=== PATIENT | female | born 1970 | race Caucasian/White ===

== ENCOUNTER 2017-02-28 07:46 | Outpatient (CLI) | payer OTHER | END 2017-02-28 07:47 | disposition home or self-care (01) | DX: Z13.220 Encounter for screening for lipoid disorders (principal); R63.5 Abnormal weight gain; Z13.1 Encounter for screening for diabetes mellitus; R03.0 Elevated blood-pressure reading, without diagnosis of hypertension ==

== ENCOUNTER 2018-03-27 17:10 | Emergency (ER) | payer OTHER ==
[2018-03-27 18:16] LABS: BILIRUBIN,URINE NEGATIVE (NEGATIVE); GLUCOSE, URINE (UA) NEGATIVE (NEGATIVE); KETONES,URINE (UA) NEGATIVE (NEGATIVE); LEUKOCYTE ESTERASE, URINE NEGATIVE (NEGATIVE); NITRITE,URINE NEGATIVE (NEGATIVE); OCCULT BLOOD,URINE MODERATE (NEGATIVE); PH,URINE 5.5 PH (5.0-7.5); PROTEIN,URINE NEGATIVE (NEGATIVE); UROBILINOGEN,URINE 0.2 (NORMAL) E.U./dL (NORMAL)
--- NOTE | 2018-03-27 18:17 | ED Physician Documentation ---
PD HPI ABD PAIN - Stated complaint Stated Complaint: ABD PX - Chief complaint Chief Complaint: Abd Pain - History obtained from History obtained from: Patient - History of Present Illness Timing - onset: How many days ago (3-4) Timing - duration: Days (3) Timing - details: Gradual onset, Still present, Still present in ED Quality: Cramping, Aching, Pain Location: LLQ Radiation: Lower back. No: Left flank Improved by: No: Eating Worsened by: Moving, Position (lying on side), Palpation. No: Eating Associated symptoms: Nausea. No: Fever, Vomiting, Diarrhea, Constipation, Dysuria, Hematuria, Loss of appetite, Vaginal dc Similar symptoms before: Has not had sx before Recently seen: Not recently seen Review of Systems Constitutional: reports: Myalgias. denies: Fever, Chills Nose: denies: Rhinorrhea / runny nose, Congestion Throat: denies: Sore throat Cardiac: denies: Chest pain / pressure, Palpitations Respiratory: denies: Dyspnea, Cough GI: reports: Abdominal Pain, Nausea. denies: Vomiting, Constipation, Diarrhea, Bloody / black stool : denies: Dysuria, Frequency, Discharge Skin: denies: Rash, Lesions PD PAST MEDICAL HISTORY - Past Medical History Cardiovascular: None Respiratory: None Neuro: None Endocrine/Autoimmune: None KILN PUSHER: None - Past Surgical History Past Surgical History: Yes /KILN PUSHER: section - Present Medications Home Medications: Ambulatory Orders Medication Instructions Recorded Confirmed Ibuprofen [Motrin Ib] 400 mg PRN 09/25/15 09/25/15 Clindamycin HCl [Cleocin HCl] 300 mg PO BID #14 capsule 03/27/18 Doxycycline Monohydrate 100 mg PO BID #14 tablet 03/27/18 HYDROcod/ACETAM 5/325 [Collins 5/325] 1 tab PO Q6H PRN #15 tablet 03/27/18 Naproxen 375 mg PO BID #20 tablet 03/27/18 - Allergies Allergies/Adverse Reactions: Allergies Allergy/AdvReac Type Severity Reaction Status Date / Time No Known Drug Allergies Allergy Verified 03/27/18 17:19 - Social History Does the pt smoke?: No Smoking Status: Never smoker Does the pt drink ETOH?: No Does the pt have substance abuse?: No - Immunizations Immunizations are current?: Yes - POLST Patient has POLST: No PD ED PE NORMAL - Vitals Vital signs reviewed: Yes - General General: Alert and oriented X 3, Well developed/nourished, Other (appears in pain LLQ. ) - HEENT HEENT: Ears normal, Pharynx benign - Neck Neck: Supple, no meningeal sign, No adenopathy - Cardiac Cardiac: RRR, No murmur - Respiratory Respiratory: Clear bilaterally - Abdomen Abdomen: Normal bowel sounds, Soft, Non distended, No organomegaly, Other ( tender LLQ with some local guarding. No percussion nor rebound tenderness. ) - Female Female : Other (some vaginal discharge. Cervix does not appear irritated. ) - Back Back: No CVA TTP - Derm Derm: Normal color, Warm and dry - Extremities Extremities: No deformity, No tenderness to palpate, Normal ROM s pain, No edema , No calf tenderness / cord - Neuro Neuro: Alert and oriented X 3, No motor deficit, Normal speech Results - Vitals Vitals: Vital Signs - 24 hr 03/27/18 03/27/18 03/27/18 17:17 18:28 21:02 Temperature 36.4 C L Heart Rate 95 81 Respiratory 18 16 17 Rate Blood Pressure 147/92 H 150/95 H O2 Saturation 100 100 03/27/18 03/27/18 21:41 21:48 Temperature Heart Rate 70 Respiratory 16 17 Rate Blood Pressure 134/83 H O2 Saturation 100 Oxygen O2 Source Room air - Labs Labs: Laboratory Tests 03/27/18 03/27/18 03/27/18 18:04 19:00 19:00 WBC 12.5 H RBC 4.35 Hgb 11.1 L Hct 34.6 L MCV 79.6 L MCH 25.4 L MCHC 32.0 RDW 16.0 H Plt Count 277 MPV 8.4 Neut # 9.3 H Lymph # 2.3 [place] # 0.6 Eos # 0.2 Baso # 0.0 Absolute Nucleated RBC 0.01 Nucleated RBC % 0.1 Sodium 136 Potassium 3.5 Chloride 101 Carbon Dioxide 27 Anion Gap 8.0 BUN 10 Creatinine 0.7 Estimated GFR (MDRD) 90 Glucose 91 Calcium 8.2 L Total Bilirubin 1.2 H AST 20 ALT 22 Alkaline Phosphatase 81 Total Protein 7.4 Albumin 3.7 Globulin 3.7 Albumin/Globulin Ratio 1.0 Lipase 18 L Urine Color YELLOW Urine Clarity CLEAR Urine pH 5.5 Ur Specific [place] >=1.030 H Urine Protein NEGATIVE Urine Glucose (UA) NEGATIVE Urine Ketones NEGATIVE Urine Occult Blood MODERATE H Urine Nitrite NEGATIVE Urine Bilirubin NEGATIVE Urine Urobilinogen 0.2 (NORMAL) Ur Leukocyte Esterase NEGATIVE Urine RBC 6-10 H Urine WBC 0-3 Ur Squamous Epith Cells MANY Squamous H Urine Bacteria Few Ur Microscopic Review INDICATED Urine Culture Comments NOT INDICATED Urine HCG, Qual NEGATIVE - Rads (name of study) abd CT Radiology: Prelim report reviewed, Discussed with rads (tuboovarian cystic mass with inflammation concerning for torsion or abscess. Suggest U/S) Pelvic U/S Radiology: Prelim report reviewed (ovary normal with flow. Tube with fluid structure complex c/w likely infection. Not large enough for drainage. ) PD MEDICAL DECISION MAKING - ED course Complexity details: reviewed results (abd CT showed cystic structure with inflammation left tuboovarian area, suggested U/S. US showing normal ovary with flow. Apparent abscess in tube. Not large enough for draianble per Rad report. ) , considered differential, d/w patient, d/w gis consultant (Dr. Hewitt, vendor relationship manager KILN PUSHER, who suggests Doxy and Clinda. ) Departure - Departure Disposition: 01 Home, Self Care Clinical Impression: Tubo-ovarian abscess, Abdominal pain, left lower quadrant Condition: Stable Record reviewed to determine appropriate education?: Yes Prescriptions: Clindamycin HCl [Cleocin HCl] 300 mg PO BID #14 capsule Doxycycline Monohydrate 100 mg PO BID #14 tablet HYDROcod/ACETAM 5/325 [Collins 5/325] 1 tab PO Q6H PRN #15 tablet PRN Reason: Pain Naproxen 375 mg PO BID #20 tablet Comments: He have what appears to be an infection of the left fallopian tube. It is not large enough to need surgical draining. We will see if it gets better with antibiotics. Use naproxen twice daily for inflammation. Add Tylenol or hydrocodone if needed for pain. Take doxycycline and clindamycin as directed. Drink lots of fluids. Follow-up with women's health, Dr. Mishra, in about a week , call for an appointment. Return sooner if worsening.
[2018-03-27 18:21] LABS: CLARITY,URINE CLEAR (CLEAR); HCG UR QUAL NEGATIVE
[2018-03-27 18:34] LABS: BACTERIA,URINE Few /HPF (None Seen); SQUAMOUS EPITHELIAL CELL,UR MANY Squamous (<= Few)
[2018-03-27] MEDS ORDERED: KETOROLAC 60 MG/2 ML VIAL IVP STA (18:34)
[2018-03-27] MEDS ORDERED: MORPHINE 10 MG/ML VIAL IVP STA ×2 (18:34→21:15)
[2018-03-27] MEDS ORDERED: ONDANSETRON 4 MG/2 ML VIAL IVP STA ×2 (18:34→21:41)
[2018-03-27] MEDS ORDERED: IOPAMIDOL-300 100 ML VIAL ONE (18:49)
[2018-03-27 19:19] LABS: BASOPHILS % (AUTO) 0.4 %; EOSINOPHILS # (AUTO) 0.2 10^3/uL (0.0-0.7); EOSINOPHILS % (AUTO) 1.6 %; HGB - HEMOGLOBIN 11.1 g/dL (12.0-16.0); LYMPHOCYTES # (AUTO) 2.3 10^3/uL (1.5-3.5); LYMPHOCYTES % (AUTO) 18.5 %; MEAN CORPUSCULAR HEMOGLOBIN 25.4 pg (27.0-31.0); MEAN CORPUSCULAR VOLUME 79.6 fL (81.0-99.0); MEAN PLATELET VOLUME 8.4 fL (7.9-10.8); MONOCYTES # (AUTO) 0.6 10^3/uL (0.0-1.0); MONOCYTES % (AUTO) 5.1 %; NEUTROPHILS # (AUTO) 9.3 10^3/uL (1.5-6.6); NEUTROPHILS % (AUTO) 74.4 %; PLT - PLATELET COUNT 277 10^3/uL (130-450); RED BLOOD COUNT 4.35 10^6/uL (4.20-5.40); WHITE BLOOD COUNT 12.5 x10^3/uL (4.8-10.8)
[2018-03-27] MEDS ORDERED: IOPAMIDOL-300 100 ML VIAL IVP ONE (19:31)
[2018-03-27 19:34] LABS: ALBUMIN 3.7 g/dL (3.2-5.5); BILIRUBIN,TOTAL 1.2 mg/dL (0.2-1.0); CALCIUM 8.2 mg/dL (8.5-10.3); CREATININE 0.7 mg/dL (0.4-1.0); TOTAL PROTEIN 7.4 g/dL (6.7-8.2)
--- NOTE | 2018-03-27 19:52 | CT Preliminary Report ---
Exam: CT ABDOMEN/PELVIS W/ IMPRESSION: 1. Abnormally enlarged left ovary with mild adjacent inflammatory stranding. Finding is nonspecific a nd could be due to developing tubo-ovarian abscess or ovarian torsion. Recommend pelvic ultrasound wi th Doppler for further evaluation. No drainable fluid collection demonstrated at this time however. 2. Few scattered colonic diverticula without evidence of acute diverticulitis. 3. Probable left renal upper pole cyst versus dilated calyx. RADIA The above findings were discussed with Faustino Patel by Dr. Faustino Ochoa at 19:46 hrs on 03/27/18. SITE ID: [id number]
--- NOTE | 2018-03-27 20:02 | CT Report ---
EXAM: CT ABDOMEN AND PELVIS EXAM DATE: 03/27/2018 07:38 PM. CLINICAL HISTORY: Left lower abdominal pain for 3 days. COMPARISONS: None. TECHNIQUE: Routine helical CT imaging was performed through the abdomen and pelvis. IV contrast: 100 mL Isovue-300. Enteric contrast: No. Reconstructions: Coronal and sagittal. In accordance with CT protocol optimization, one or more of the following dose reduction techniques w ere utilized for this exam: automated exposure control, adjustment of mA and/or KV based on patient s ize, or use of iterative reconstructive technique. FINDINGS: Lung Bases: Unremarkable. Liver: Normal. No masses. Gallbladder/Bile Ducts: Unremarkable. Spleen: Normal. Pancreas: Normal. Adrenal Glands: Normal. Kidneys: No hydronephrosis or any definite calculi. Small hypodense structure again noted in the left kidney extending into the parapelvic region from the upper pole, either a parapelvic/renal cortical cyst versus prominent calyx. Peritoneal Cavity/Bowel: No free fluid. No extraluminal gas. No evidence of bowel obstruction or inflammation. Stool burden is within normal limits. There are a f ew scattered colonic diverticula without evidence of acute diverticulitis. The appendix is visualized and normal. No abnormally enlarged lymph nodes. Pelvic Organs: -The urinary bladder is unremarkable. -The uterus is anteflexed and within normal limits. -There is a cyst versus prominent follicle in the region of the right adnexa measuring 29 mm (). -The left ovary is enlarged measuring 26 x 31 x 39 mm with adjacent mild fat stranding ( and 03/27 ). The ovary is located in the left lower quadrant. There is a small rim-enhancing cystic-appearing f ocus which could represent a tiny abscess or follicle (). Vasculature: No aneurysms or other significant abnormality. Bones: No significant abnormality. Other: None. IMPRESSION: 1. Abnormally enlarged left ovary with mild adjacent inflammatory stranding. Finding is nonspecific a nd could be due to developing tubo-ovarian abscess or ovarian torsion. Recommend pelvic ultrasound wi th Doppler for further evaluation. No drainable fluid collection demonstrated at this time, however. 2. Few scattered colonic diverticula without evidence of acute diverticulitis. 3. Probable left renal upper pole cyst versus dilated calyx. RADIA The above findings were discussed with Faustino Patel by Dr. Faustino Ochoa at 19:46 hrs on 03/27/18. Referring Provider Line: [phone] SITE ID: [id number]
--- NOTE | 2018-03-27 21:29 | Ultrasound Preliminary Report ---
Exam: US PELVIC W/TRANSVAG+DOPPLER LTD IMPRESSION: 1. Simple 3.5 cm right ovarian cyst. Otherwise normal uterus and ovaries. 2. Questionable dilated left fallopian tube containing debris or blood products. Clinical correlation recommended to exclude pyosalpinx. If clinically indicated, MR may be helpful for further characteri zation. RADIA SITE ID: [id number]
--- NOTE | 2018-03-27 21:29 | Ultrasound Report ---
EXAM: PELVIC ULTRASOUND EXAM DATE: 03/27/2018 09:05 PM. CLINICAL HISTORY: Lower abd pain for few days. COMPARISON: None. TECHNIQUE: Realtime transabdominal pelvic scan performed to identify the uterus and adnexa and as an overview of other pelvic structures, followed by transvaginal scan to provide greater detail of the u terus and adnexa, with static image documentation. FINDINGS: Uterus: 10.5 x 4.2 x 5.8 cm, volume 134.1 cc. Anteverted position. Normal overall size and echotextur e. Masses: None. Endometrium: 10 mm. Normal. Cervix: Unremarkable. Right Ovary: 4.7 x 3.2 x 3.4 cm, volume 27.1 cc. There is a simple 3.5 x 2.7 x 3.1 cm cyst within the right ovary. There is normal ovarian blood flow. Left Ovary: 3.2 x 2.4 x 2.9 cm, volume 11.7 cc. Normal echotexture and blood flow. There is a tubular structure measuring 1 cm in diameter between the ovary and uterus containing internal echoes. Free Fluid: None. Other: None. IMPRESSION: 1. Simple 3.5 cm right ovarian cyst. Otherwise normal uterus and ovaries. 2. Questionable dilated left fallopian tube containing debris or blood products. Clinical correlation recommended to exclude pyosalpinx. If clinically indicated, MR may be helpful for further characteri zation. RADIA Referring Provider Line: [phone] SITE ID: [id number]
[2018-03-27 21:50] VITALS: BP 134/83
[2018-03-27] MEDS ORDERED: ONDANSETRON ODT 4 MG Prepack 2 TL PRN (22:08)
[2018-03-27] MEDS ORDERED: CLINDAMYCIN 150 MG CAPSULE PO STA (22:16)
[2018-03-27] MEDS ORDERED: HYDROcod/ACET 5/325 Prepack 4 PO STA (22:17)
[2018-03-27] MEDS ORDERED: cefTRIAXone 1 GM in SODIUM CHLORIDE 0.9% MINIBAG 100 ML IV STA (22:26)
[2018-03-27] MEDS: DOXYCYCLINE 100 MG TABLET PO STA ×2 (22:41→23:22)
== END 2018-03-27 23:24 | disposition home or self-care (01) ==
LOC: ED 17:10
DX: N70.93 Salpingitis and oophoritis, unspecified (principal); R10.32 Left lower quadrant pain
CPT/HCPCS: 36415; 74177; 76830; 76856; 80053; 81001; 81025; 83690; 85025; 87210; 87491; 87591; 93976; 96365; 96375; 96376; 99284; Q9967; 81003; 87086

== ENCOUNTER 2018-05-14 18:11 | Outpatient (CLI) | payer OTHER ==
--- NOTE | 2018-05-15 11:57 | Ultrasound Report ---
Procedure Date: 05/14/2018 Accession Number: [id number] / [id number] Procedure: US - Pelvic w/Transvaginal CPT Code: FULL RESULT: EXAM: Pelvic w/Transvaginal DATE: 05/14/2018 7:03 PM CLINICAL HISTORY: FEMALE PELVIC INFLAMMATORY DISEASE COMPARISON: Pelvic ultrasound 03/27/2018. TECHNIQUE: Realtime transabdominal imaging performed to identify the uterus and adnexa and as an overview of other pelvic structures, followed by transvaginal imaging for better assessment of the endometrium and/or adnexa, with static image documentation. FINDINGS: Uterus: 10.3 x 4.3 x 5.8 cm, volume 134 cc. Anteverted position. Normal overall size and echotexture. Masses: None. Endometrium: 12 mm. Normal. Cervix: Minimal endocervical fluid, otherwise unremarkable. Right Ovary/Adnexa: 2.6 x 2.8 x 2.1 cm, volume 8 cc. Normal echotexture. Blood flow is present. No adnexal mass is seen. Left Ovary/Adnexa: 2.2 x 2.3 x 1.5 cm, volume for cc. Normal echotexture. Blood flow is present. Left adnexal cyst measuring up to 2.3 cm without vascularity, possibly a dominant follicle. Free Fluid: None. Other: None. IMPRESSION: Left adnexal cyst as described, otherwise normal pelvic ultrasound. RADIA
== END 2018-05-14 18:12 | disposition home or self-care (01) ==
LOC: DI 18:11
PROVIDERS: ATTEND Obstetrics & Gynecology
DX: N94.89 Other specified conditions associated with female genital organs and menstrual cycle (principal); N73.9 Female pelvic inflammatory disease, unspecified
CPT/HCPCS: 76830; 76856

== ENCOUNTER 2019-09-18 14:20 | Outpatient (CLI) | payer BC, OTHER ==
[2019-09-18 15:13] LABS: HCG UR QUAL NEGATIVE
== END 2019-09-18 23:59 | disposition home or self-care (01) ==
LOC: LAB.R 14:20
PROVIDERS: ATTEND Obstetrics & Gynecology
DX: N91.2 Amenorrhea, unspecified (principal)
CPT/HCPCS: 81025

== ENCOUNTER 2019-09-27 07:45 | Outpatient (CLI) | payer BC ==
[2019-09-27 08:30] LABS: HGB - HEMOGLOBIN 12.2 g/dL (12.0-16.0); MEAN CORPUSCULAR HEMOGLOBIN 26.1 pg (27.0-31.0); MEAN CORPUSCULAR HGB CONC 31.2 g/dL (32.0-36.0); MEAN CORPUSCULAR VOLUME 83.5 fL (81.0-99.0); RED BLOOD COUNT 4.68 10^6/uL (4.20-5.40); RED CELL DISTRIBUTION WIDTH 15.5 % (12.0-15.0); WHITE BLOOD COUNT 6.6 x10^3/uL (4.8-10.8)
[2019-09-27 08:45] LABS: ALBUMIN 3.9 g/dL (3.2-5.5); ALBUMIN/GLOBULIN RATIO 1.1 (1.0-2.2); ALKALINE PHOSPHATASE 86 IU/L (42-121); ALT ALANINE AMINOTRANSFERASE 27 IU/L (10-60); AST ASPARTATE AMINOTRANSFERASE 23 IU/L (10-42); BILIRUBIN,TOTAL 0.8 mg/dL (0.2-1.0); BUN - BLOOD UREA NITROGEN 12 mg/dL (6-20); CARBON DIOXIDE - CO2 29 mmol/L (21-32); CHLORIDE 101 mmol/L (101-111); CHOL/HDL RATIO 3.2 (<4.4); CHOLESTEROL 174 mg/dL; CREATININE 0.8 mg/dL (0.4-1.0); GFR - MDRD 76 (>89); GLUCOSE 106 mg/dL (70-100); HDL CHOLESTEROL 55 mg/dL; LDL CHOLESTEROL,CALCULATED 103 mg/dL; LDL/HDL RATIO 1.9 (<4.4); SODIUM 138 mmol/L (135-145); TOTAL PROTEIN 7.3 g/dL (6.7-8.2); VLDL CHOLESTEROL 16 mg/dL
[2019-09-27 08:49] LABS: HB2 TOTAL 12.5 g/dL; HEMOGLOBIN A1C 0.48 g/dL; HEMOGLOBIN A1C % 5.7 % (4.6-6.2)
[2019-09-27 09:07] LABS: T4 (THYROXINE) 10.36 ug/dL (6.09-12.23)
[2019-09-27 09:10] LABS: THYROID STIMULATING HORMONE 2.9 uIU/mL (0.34-5.60)
[2019-09-27 09:39] LABS: FOLLICLE STIMULATING HORMONE 12.42 mIU/mL
== END 2019-09-27 07:46 | disposition home or self-care (01) ==
LOC: LAB 07:45
PROVIDERS: ATTEND Obstetrics & Gynecology
DX: Z13.1 Encounter for screening for diabetes mellitus (principal); Z13.220 Encounter for screening for lipoid disorders; N92.6 Irregular menstruation, unspecified; E03.9 Hypothyroidism, unspecified; Z13.0 Encounter for screening for diseases of the blood and blood-forming organs and certain disorders involving the immune mechanism
CPT/HCPCS: 36415; 80053; 80061; 82670; 83001; 83036; 83721; 84144; 84436; 84443; 84702; 85027

== ENCOUNTER 2019-10-28 12:32 | Outpatient (CLI) | payer BC ==
--- NOTE | 2019-10-28 14:17 | Mammography Report ---
Reason: LEFT AXILLA MASS Procedure Date: 10/28/2019 Accession Number: [id number] / [id number] Procedure: TANNER - Diagnostic Dig Bilat CPT Code: Final Report FULL RESULT: EXAM: Diagnostic Dig Bilat DATE: 10/28/2019 1:32 PM CLINICAL HISTORY: Palpable left axillary mass. TECHNIQUE: (B) - Bilateral CC and MLO views were obtained. Left ML images are obtained. Focused left breast and left axilla ultrasound is performed. COMPARISON: 04/18/2017. PARENCHYMAL PATTERN: (D) - The breast(s) demonstrate(s) heterogeneously dense fibroglandular parenchyma. FINDINGS: The palpable left axillary mass as marked demonstrates fat density, asymmetric contour abnormality is seen at the expected location, possibly a lipoma. Focused left axilla ultrasound is performed with no suspicious mass or collection seen. Sonographically, no lesion is identified. A stable asymmetry seen medially along the breast, on the left CC projection is unchanged compared to 2017 and focused left breast ultrasound demonstrates no abnormalities in the area with normal breast parenchyma seen, typically benign. There are no suspicious masses, calcifications, or areas of distortion. IMPRESSION: Benign findings. BI-RADS category 2. RECOMMENDATION: (ANNUAL) - Recommend routine annual screening mammography. BI-RADS CATEGORY: (2) - Benign Findings. STANDARD QUALIFYING STATEMENTS: 1. This examination was not reviewed with the aid of Computer-Aided Detection (CAD). 2. A negative or benign imaging report should not preclude biopsy if clinically suspicious findings are present. 3. Dense breasts may obscure an underlying neoplasm. 4. This examination was reviewed with the aid of 3D breast imaging (tomosynthesis).
== END 2019-10-28 12:33 | disposition home or self-care (01) ==
LOC: DI 12:32
PROVIDERS: ATTEND Obstetrics & Gynecology
DX: N63.32 Unspecified lump in axillary tail of the left breast (principal)
CPT/HCPCS: 76642; 77066

== ENCOUNTER 2019-11-15 08:00 | Outpatient (CLI) | payer BC | END 2019-11-15 23:59 | LOC: LAB.R 08:00 | PROVIDERS: ATTEND Nurse Practitioner | DX: J06.9 Acute upper respiratory infection, unspecified (principal) | CPT/HCPCS: 87275; 87276 ==

== ENCOUNTER 2019-11-19 19:00 | Outpatient (CLI) | payer BC ==
--- NOTE | 2019-11-22 08:25 | Ultrasound Report ---
Reason: IRREGULAR PERIODS Procedure Date: 11/19/2019 Accession Number: [id number] / [id number] Procedure: US - Pelvic w/Transvaginal CPT Code: Final Report FULL RESULT: EXAM: PELVIC ULTRASOUND EXAM DATE: 11/19/2019 07:30 PM. CLINICAL HISTORY: IRREGULAR PERIODS. COMPARISON: PELVIC W/TRANSVAGINAL 05/14/2018 6:23 PM ABDOMEN/PELVIS W/ 03/27/2018 7:28 PM. TECHNIQUE: Realtime transabdominal pelvic scan performed to identify the uterus and adnexa and as an overview of other pelvic structures, followed by transvaginal scan to provide greater detail of the uterus and adnexa, with static image documentation. FINDINGS: Uterus: 7.5 x 3.2 x 4.6 cm, volume 57.7 cc. Anteverted position. Normal overall size and echotexture. Masses: None. Endometrium: 5 mm. Normal. Cervix: Nabothian cysts Right Ovary: Not identified Left Ovary: 3.1 x 1.3 x 2.5 cm, volume 5.5 cc. 1.3 x 0.8 x 1.1 cm follicle Normal echotexture and blood flow. Free Fluid: None. Other: None. IMPRESSION: 1. Right ovary not identified. 2. Resolution of previous left ovarian cyst RADIA
== END 2019-11-19 19:01 | disposition home or self-care (01) ==
LOC: DI 19:00
PROVIDERS: ATTEND Obstetrics & Gynecology
DX: N92.6 Irregular menstruation, unspecified (principal)
CPT/HCPCS: 76830; 76856

== ENCOUNTER 2019-12-01 12:38 | Emergency (ER) | payer BC ==
[2019-12-01 12:54] VITALS: BP 146/92
--- NOTE | 2019-12-01 14:23 | ED Physician Documentation ---
History of Present Illness - Stated complaint Stated Complaint: DENTAL PX - Chief complaint Chief Complaint: Heent - History obtained from History obtained from: Patient - History of Present Illness Timing: How many days ago (2-3) Pain level max: 10 Pain level now: 10 - Additonal information Additional information: 49-year-old female presents the emergency department left lower dental pain and jaw swelling today. States is been ongoing for 2 to 3 days. Called her dentist and was told to come here for antibiotics. She has an appointment next week. No fevers. Has had a cracked tooth for several months. Worse with eating and drinking. Nothing makes it better. Review of Systems Constitutional: denies: Fever, Chills GI: denies: Vomiting, Diarrhea Skin: denies: Rash Musculoskeletal: denies: Neck pain, Back pain Neurologic: denies: Headache PD PAST MEDICAL HISTORY - Past Medical History Cardiovascular: None Respiratory: None Neuro: None Endocrine/Autoimmune: None ONLINE ACTIVIST: None - Past Surgical History Past Surgical History: Yes /ONLINE ACTIVIST: section - Present Medications Home Medications: Ambulatory Orders Medication Instructions Recorded Confirmed Ibuprofen [Motrin Ib] 400 mg PRN 09/25/15 09/25/15 Clindamycin HCl [Cleocin HCl] 300 mg PO BID #14 capsule 03/27/18 Doxycycline Monohydrate 100 mg PO BID #14 tablet 03/27/18 HYDROcod/ACETAM 5/325 [[place]ma 5/325] 1 tab PO Q6H PRN #15 tablet 03/27/18 Naproxen 375 mg PO BID #20 tablet 03/27/18 Hydrocodone/Acetaminophen 1 - 2 each PO Q6H PRN #14 tablet 12/01/19 [Hydrocodon-Acetaminophen 5-325] Penicillin V Potassium 500 mg PO Q6HR #40 tablet 12/01/19 - Allergies Allergies/Adverse Reactions: Allergies Allergy/AdvReac Type Severity Reaction Status Date / Time No Known Drug Allergies Allergy Verified 03/27/18 17:19 - Social History Does the pt smoke?: No Smoking Status: Never smoker Does the pt drink ETOH?: No Does the pt have substance abuse?: No - Immunizations Immunizations are current?: Yes - POLST Patient has POLST: No PD ED PE NORMAL - Vitals Vital signs reviewed: Yes - General General: Alert and oriented X 3, No acute distress - HEENT HEENT: Moist mucous membranes, Other (Tender to palpation left lower molar. Cracked tooth. No gingival swelling. No drainable abscess. Slight left facial swelling. No skin changes. No Good's angina) - Neck Neck: Supple, no meningeal sign, No adenopathy - Derm Derm: Warm and dry - Neuro Neuro: Alert and oriented X 3 Results - Vitals Vitals: Vital Signs - 24 hr 12/01/19 12:53 Temperature 36.7 C Heart Rate 90 Respiratory 16 Rate Blood Pressure 146/92 H O2 Saturation 100 Oxygen O2 Source Room air PD MEDICAL DECISION MAKING - ED course Complexity details: considered differential, d/w patient ED course: 49-year-old female with dental pain and facial swelling. Will place on antibiotics and pain medication. She will follow-up with her dentist for further care. Patient counseled regarding signs and symptoms for which I believe and urgent re-evaluation would be necessary. Patient with good understanding of and agreement to plan and is comfortable going home at this time This document was made in part using voice recognition software. While efforts are made to proofread this document, sound alike and grammatical errors may oc cur. No drainable abscess. Departure - Departure Disposition: 01 Home, Self Care Clinical Impression: Pain, dental Condition: Good Instructions: ED Tooth Pain Follow-Up: Madai Tan ARNP, UTILITY LOCATOR-C [Primary Care Provider] - Prescriptions: Penicillin V Potassium 500 mg PO Q6HR #40 tablet Hydrocodone/Acetaminophen [Hydrocodon-Acetaminophen 5-325] 1 - 2 each PO Q6H PRN #14 tablet PRN Reason: pain Comments: Take all antibiotics until gone. Make sure to follow-up with your dentist as soon as possible. Return if you worsen. Do not drink alcohol or drive while on narcotic pain medicine. Note that many narcotic pain relievers also contain tylenol/acetaminophen. Please ensure that your total dose of acetaminophen from all sources does not exceed 3 grams (3000mg) per day. You may constipated on this medication, take a stool softener such as "Colace" twice a day while you are on it. Also recommend a kair-yjx-gykjfok laxative such as senna or MiraLAX any day that you do not have a bowel movement. If you received narcotic pain medication in the emergency department, do not drive or operate machinery for the next 24 hours.
== END 2019-12-01 14:31 | disposition home or self-care (01) ==
LOC: ED 12:38
DX: K08.89 Other specified disorders of teeth and supporting structures (principal); K03.81 Cracked tooth
CPT/HCPCS: 99282; 99284

== ENCOUNTER 2021-07-17 12:42 | Emergency (ER) | payer BC ==
[2021-07-17 13:33] LABS: BASOPHILS # (AUTO) 0.1 10^3/uL (0.0-0.1); BASOPHILS % (AUTO) 0.6 %; EOSINOPHILS # (AUTO) 0.2 10^3/uL (0.0-0.7); EOSINOPHILS % (AUTO) 2.8 %; HCT - HEMATOCRIT 37.4 % (37.0-47.0); HGB - HEMOGLOBIN 11.9 g/dL (12.0-16.0); LYMPHOCYTES # (AUTO) 2.1 10^3/uL (1.5-3.5); LYMPHOCYTES % (AUTO) 25.7 %; MEAN CORPUSCULAR HEMOGLOBIN 25.3 pg (27.0-31.0); MEAN CORPUSCULAR HGB CONC 31.8 g/dL (32.0-36.0); MEAN CORPUSCULAR VOLUME 79.4 fL (81.0-99.0); MEAN PLATELET VOLUME 9.5 fL (7.9-10.8); MONOCYTES # (AUTO) 0.4 10^3/uL (0.0-1.0); MONOCYTES % (AUTO) 4.5 %; NEUTROPHILS # (AUTO) 5.5 10^3/uL (1.5-6.6); NEUTROPHILS % (AUTO) 65.9 %; PLT - PLATELET COUNT 308 10^3/uL (130-450); RED BLOOD COUNT 4.71 10^6/uL (4.20-5.40); RED CELL DISTRIBUTION WIDTH 15.9 % (12.0-15.0); WHITE BLOOD COUNT 8.3 x10^3/uL (4.8-10.8)
[2021-07-17 13:53] LABS: ALBUMIN 4.1 g/dL (3.2-5.5); ALBUMIN/GLOBULIN RATIO 1.1 (1.0-2.2); BILIRUBIN,TOTAL 1.3 mg/dL (0.2-1.0); CALCIUM 9.1 mg/dL (8.5-10.3); CREATININE 0.8 mg/dL (0.4-1.0); POTASSIUM 3.9 mmol/L (3.5-5.0); TOTAL PROTEIN 7.8 g/dL (6.7-8.2)
[2021-07-17 17:04] LABS: BILIRUBIN,URINE NEGATIVE (NEGATIVE); GLUCOSE, URINE (UA) NEGATIVE (NEGATIVE); KETONES,URINE (UA) NEGATIVE (NEGATIVE); LEUKOCYTE ESTERASE, URINE NEGATIVE (NEGATIVE); NITRITE,URINE NEGATIVE (NEGATIVE); OCCULT BLOOD,URINE SMALL (NEGATIVE); PH,URINE 5.5 PH (5.0-7.5); PROTEIN,URINE NEGATIVE (NEGATIVE); UROBILINOGEN,URINE 0.2 (NORMAL) E.U./dL (NORMAL)
[2021-07-17] MEDS ORDERED: IOPAMIDOL-300 100 ML VIAL ONE (17:04)
[2021-07-17 17:09] LABS: CLARITY,URINE CLEAR (CLEAR)
[2021-07-17] MEDS ORDERED: SUCRALFATE 1 GM/10 ML UDC PO STA (17:17)
[2021-07-17] MEDS ORDERED: FAMOTIDINE 20 MG TABLET PO STA (17:17)
[2021-07-17] MEDS ORDERED: LIDOCAINE VISCOUS 2% 15 ML UDC MM STA (17:17)
[2021-07-17] MEDS ORDERED: MAG HYDROX/AL HYDROX/SIMETH 30 ML UDC PO STA (17:17)
[2021-07-17 17:18] LABS: BACTERIA,URINE Moderate /HPF (None Seen); MUCUS,URINE Few Strands; RBC,URINE 0-5 /HPF (0-5); SQUAMOUS EPITHELIAL CELL,UR MANY Squamous (<= Few)
--- NOTE | 2021-07-17 17:18 | ED Physician Documentation ---
PD HPI ABD PAIN - Stated complaint Stated Complaint: ABDOMINAL PX - Chief complaint Chief Complaint: Abd Pain - History obtained from History obtained from: Patient - History of Present Illness Timing - onset: Today Pain level max: 7 Pain level now: 5 Quality: Aching, Pain Location: Epigastric Radiation: No: Chest, , Lower back, Left flank, Left shoulder, Right flank, Right shoulder, Upper back Improved by: Other (nothing) Worsened by: Eating Associated symptoms: Nausea. No: Fever, Vomiting, Hematemesis, Diarrhea, Constipation, Melena, Hematochezia, Dysuria Recently seen: Clinic (seen in clinic this am for same.) - Additional information Additional information: Patient is a 51-year-old female who presents to the emergency department 3 days of epigastric abdominal pain. Worse with eating and drinking, nothing makes it better. Had nausea but no vomiting. Normal bowel movements. She states that she is unable to eat much food without the pain occurring. Review of Systems Ten Systems: 10 systems reviewed and negative Constitutional: denies: Fever, Chills Nose: denies: Rhinorrhea / runny nose, Congestion Respiratory: denies: Cough GI: denies: Diarrhea Skin: denies: Rash Musculoskeletal: denies: Neck pain, Back pain Neurologic: denies: Focal weakness, Numbness, Headache PD PAST MEDICAL HISTORY - Past Medical History Cardiovascular: None Respiratory: None Neuro: None Endocrine/Autoimmune: None INFORMATION TECHNOLOGY TEACHER: None - Past Surgical History Past Surgical History: Yes /INFORMATION TECHNOLOGY TEACHER: section - Present Medications Home Medications: Ambulatory Orders Medication Instructions Recorded Confirmed Esomeprazole Magnesium [Nexium] 40 mg PO DAILY #30 cap 07/17/21 Famotidine [Pepcid] 20 mg PO BID #60 tablet 07/17/21 Sucralfate [Carafate] 1 gm PO ACHS #60 tablet 07/17/21 - Allergies Allergies/Adverse Reactions: Allergies Allergy/AdvReac Type Severity Reaction Status Date / Time No Known Drug Allergies Allergy Verified 07/17/21 13:01 - Social History Does the pt smoke?: No Smoking Status: Never smoker Does the pt drink ETOH?: No Does the pt have substance abuse?: No - Immunizations Immunizations are current?: Yes - POLST Patient has POLST: No PD ED PE NORMAL - Vitals Vital signs reviewed: Yes - General General: Alert and oriented X 3, No acute distress - HEENT HEENT: PERRL, Moist mucous membranes - Neck Neck: Supple, no meningeal sign - Cardiac Cardiac: RRR, Strong equal pulses - Respiratory Respiratory: No respiratory distress, Clear bilaterally - Abdomen Abdomen: Soft, Non distended, Other - Derm Derm: Warm and dry - Extremities Extremities: No deformity - Neuro Neuro: Alert and oriented X 3 - Psych Psych: Normal mood, Normal affect Results - Vitals Vitals: Vital Signs - 24 hr 07/17/21 07/17/21 07/17/21 12:53 17:16 19:00 Temperature 36.1 C L 98.4 C H Heart Rate 125 H 92 78 Respiratory 16 18 18 Rate Blood Pressure 148/84 H 115/65 151/89 H O2 Saturation 100 97 97 07/17/21 20:34 Temperature Heart Rate 78 Respiratory 16 Rate Blood Pressure 148/91 H O2 Saturation 97 Oxygen O2 Source Room air - Labs Labs: Laboratory Tests 07/17/21 07/17/21 07/17/21 13:28 13:28 16:55 WBC 8.3 RBC 4.71 Hgb 11.9 L Hct 37.4 MCV 79.4 L MCH 25.3 L MCHC 31.8 L RDW 15.9 H Plt Count 308 MPV 9.5 Neut # (Auto) 5.5 Lymph # (Auto) 2.1 [place] # (Auto) 0.4 Eos # (Auto) 0.2 Baso # (Auto) 0.1 Absolute Nucleated RBC 0.00 Nucleated RBC % 0.0 Sodium 138 Potassium 3.9 Chloride 100 L Carbon Dioxide 27 Anion Gap 11.0 BUN 15 Creatinine 0.8 Estimated GFR (MDRD) 76 L Glucose 110 H Calcium 9.1 Total Bilirubin 1.3 H AST 16 ALT 25 Alkaline Phosphatase 99 Total Protein 7.8 Albumin 4.1 Globulin 3.7 Albumin/Globulin Ratio 1.1 Lipase 27 Urine Color DARK YELLOW Urine Clarity CLEAR Urine pH 5.5 Ur Specific [place] >=1.030 H Urine Protein NEGATIVE Urine Glucose (UA) NEGATIVE Urine Ketones NEGATIVE Urine Occult Blood SMALL H Urine Nitrite NEGATIVE Urine Bilirubin NEGATIVE Urine Urobilinogen 0.2 (NORMAL) Ur Leukocyte Esterase NEGATIVE Urine RBC 0-5 Urine WBC 4-5 Ur Squamous Epith Cells MANY Squamous H Urine Bacteria Moderate H Urine Mucus Few Strands Ur Microscopic Review INDICATED Urine Culture Comments NOT INDICATED Urine HCG, Qual 07/17/21 16:55 WBC RBC Hgb Hct MCV MCH MCHC RDW Plt Count MPV Neut # (Auto) Lymph # (Auto) [place] # (Auto) Eos # (Auto) Baso # (Auto) Absolute Nucleated RBC Nucleated RBC % Sodium Potassium Chloride Carbon Dioxide Anion Gap BUN Creatinine Estimated GFR (MDRD) Glucose Calcium Total Bilirubin AST ALT Alkaline Phosphatase Total Protein Albumin Globulin Albumin/Globulin Ratio Lipase Urine Color Urine Clarity Urine pH Ur Specific [place] Urine Protein Urine Glucose (UA) Urine Ketones Urine Occult Blood Urine Nitrite Urine Bilirubin Urine Urobilinogen Ur Leukocyte Esterase Urine RBC Urine WBC Ur Squamous Epith Cells Urine Bacteria Urine Mucus Ur Microscopic Review Urine Culture Comments Urine HCG, Qual NEGATIVE - Rads (name of study) CT abdomen pelvis Radiology: Final report received, EMP read contemporaneously, See rad report right Upper quadrant ultrasound Radiology: Final report received, EMP read contemporaneously, See rad report PD MEDICAL DECISION MAKING - ED course Complexity details: reviewed results, re-evaluated patient, considered differential, d/w patient ED course: 51-year-old female with epigastric abdominal pain. Unclear etiology. Does feel better after GI cocktail. Possibly related to gastritis. She states she has been under a lot of stress recently. No acute findings on CT abdomen pelvis or right upper quadrant ultrasound or laboratory testing. Will place on medication for potential gastritis and have her follow-up with her doctor for further care. Patient counseled regarding signs and symptoms for which I believe and urgent re-evaluation would be necessary. Patient with good understanding of and agreement to plan and is comfortable going home at this time This document was made in part using voice recognition software. While efforts are made to proofread this document, sound alike and grammatical errors may occur. Departure - Departure Disposition: 01 Home, Self Care Clinical Impression: Abdominal pain Qualifiers: Abdominal location: epigastric Qualified Code(s): R10.13 - Epigastric pain Gastritis Qualifiers: Gastritis type: unspecified gastritis Chronicity: acute Gastritis bleeding: without bleeding Qualified Code(s): K29.00 - Acute gastritis without bleeding Condition: Good Instructions: ED Abdominal Pain Unkn Cause, ED Gastritis, ED PUD Vs Gastritis Follow-Up: your,doctor in 1 week [Other] Prescriptions: Sucralfate [Carafate] 1 gm PO ACHS #60 tablet Esomeprazole Magnesium [Nexium] 40 mg PO DAILY #30 cap Famotidine [Pepcid] 20 mg PO BID #60 tablet Comments: Your prescriptions were sent to [facility] in [place]. Take the medications as prescribed. Follow-up with your doctor for further care. Your laboratory testing, CT scan and ultrasound did not show any acute abnormalities. This may be an early ulcer versus gastritis. Your doctor may want to refer you for an EGD to evaluate your stomach. Eat a bland diet. Discharge Date/Time: 07/17/21 20:35
[2021-07-17 17:27] LABS: HCG UR QUAL NEGATIVE
--- NOTE | 2021-07-17 19:03 | Ultrasound Report ---
PROCEDURE: Abdomen Limited INDICATIONS: RUQ abd pain TECHNIQUE: Real-time focused scanning was performed of the right upper quadrant, with image documentation. COMPARISON: CT abdomen pelvis 03/27/2018 FINDINGS: The liver is slightly increased in echogenicity suggestive of fatty infiltration. No discrete hepatic mass identified. No gallbladder wall thickening, gallstones, or pericholecystic fluid. No intra or extra hepatic biliary ductal dilatation. The visualized common bile duct appears normal i n caliber measuring up to 0.4 cm with visualization limited distally. The right kidney measures up to 10.5 cm. No hydronephrosis. The pancreas was not well visualized. IMPRESSION: 1. No evidence of cholelithiasis or cholecystitis. 2. Increased hepatic echogenicity suggestive of steatosis. Reviewed by: Ilan Bolivar MD on 07/17/2021 7:01 PM PDT Approved by: Ilan Bolivar MD on 07/17/2021 7:01 PM PDT Station ID: [id number]
--- NOTE | 2021-07-17 20:11 | CT Report ---
PROCEDURE: Abdomen/Pelvis W INDICATIONS: epigastric abd pain CONTRAST: IV CONTRAST: Isovue 300 ml: 100 PO CONTRAST: *NO PO CONTRAST TECHNIQUE: After the administration of contrast, 5 mm thick sections acquired from the diaphragms to the sym physis. 5 mm thick coronal and sagittal reformats were acquired. For radiation dose reduction, the following was used: automated exposure control, adjustment of mA and/or kV according to patient size . COMPARISON: Ultrasound abdomen 07/17/2021, CT abdomen pelvis 03/27/2018. FINDINGS: Image quality: Excellent. ABDOMEN: Lung bases: Lung bases are clear. Heart size is normal. There is a small hiatal hernia. Solid organs: Evaluation of the liver demonstrates no focal hepatic lesions. Gallbladder appears with in normal limits without calcified gallstones. Biliary system is non dilated. The spleen is normal i n size. Pancreas enhances normally without peripancreatic fat stranding or fluid collections. No adr enal nodules. Kidneys demonstrate no hydronephrosis. There is a parapelvic left renal cyst. Peritoneum and bowel: Bowel loops demonstrate normal wall thickness and caliber. No pericecal infla mmatory changes to suggest appendicitis. There is colonic diverticulosis without acute diverticulitis . No free fluid or air. Nodes and vessels: No retroperitoneal or mesenteric adenopathy by size criteria. Aorta and inferior vena cava are normal in size. Miscellaneous: No ventral hernias. PELVIS: Genitourinary: Bladder wall thickness is normal. Miscellaneous: No inguinal hernias or adenopathy. Bones: No suspicious bony lesions. No vertebral body compression fractures. IMPRESSION: 1. Small hiatal hernia. 2. No CT evidence of pancreatitis. 3. Colonic diverticulosis without acute diverticulitis. Reviewed by: Ilan Bolivar MD on 07/17/2021 8:10 PM PDT Approved by: Ilan Bolivar MD on 07/17/2021 8:10 PM PDT Station ID: [id number]
[2021-07-17 20:35] VITALS: BP 148/91
[2021-07-17] MEDS ORDERED: IOPAMIDOL-300 100 ML VIAL IVP ONE (20:47)
== END 2021-07-17 20:35 | disposition home or self-care (01) ==
LOC: ED 12:42
DX: K29.00 Acute gastritis without bleeding (principal)
CPT/HCPCS: 36415; 74177; 76705; 80053; 81001; 81025; 83690; 85025; 99284; A9270; Q9967; 81003; 87086

== ENCOUNTER 2021-11-16 06:32 | Emergency (ER) | payer BC ==
--- NOTE | 2021-11-16 07:11 | ED Physician Documentation ---
PD HPI ABD PAIN - Stated complaint Stated Complaint: ABD PX - Chief complaint Chief Complaint: Abd Pain - History obtained from History obtained from: Patient - History of Present Illness Timing - onset: How many months ago (2) Timing - duration: Months (2) Timing - details: Gradual onset, Still present, Waxing and waning (was improved for couple of weeks and was told could stop her acid-reducing meds. Has been off Nexium and Famotidine for couple of weeks.) Quality: Aching, Pain Location: Epigastric Radiation: No: Chest Improved by: Meds (antacids) Worsened by: Eating Associated symptoms: Nausea. No: Fever, Vomiting, Diarrhea, Melena Similar symptoms before: No diagnosis (presumed gastritis/ulcer with negative other tests. Has not had stool nor breath test, per patient.) Recently seen: Clinic (has had eval with labs, abd CT, U/S and was referred to Surgery for EGD. Saw Dr. Yi prior to and was to get EGD, which is currently postponed til December due to limited outpt procedures at hospital.) Review of Systems Constitutional: denies: Fever, Chills Nose: denies: Rhinorrhea / runny nose, Congestion Throat: denies: Sore throat Respiratory: denies: Cough GI: reports: Abdominal Pain, Nausea. denies: Vomiting, Constipation, Diarrhea, Bloody / black stool Neurologic: denies: Generalized weakness, Near syncope PD PAST MEDICAL HISTORY - Past Medical History Cardiovascular: None Respiratory: None Neuro: None Endocrine/Autoimmune: None [facility]: None : Other Psych: None Musculoskeletal: None - Past Surgical History Past Surgical History: Yes /[facility]: section - Present Medications Home Medications: Ambulatory Orders Medication Instructions Recorded Confirmed Esomeprazole Magnesium [Nexium] 40 mg PO DAILY #30 cap 07/17/21 Famotidine [Pepcid] 20 mg PO BID #60 tablet 07/17/21 Sucralfate [Carafate] 1 gm PO ACHS #60 tablet 07/17/21 Esomeprazole Magnesium 20 mg PO DAILY 30 Days #30 tab 11/16/21 Famotidine [Pepcid] 20 mg PO BID #20 tablet 11/16/21 Lidocaine Viscous 2% [Xylocaine 5 ml PO Q4H PRN #100 ml 11/16/21 Viscous 2%] Sucralfate [Carafate] 1 gm PO ACHS #30 tablet 11/16/21 - Allergies Allergies/Adverse Reactions: Allergies Allergy/AdvReac Type Severity Reaction Status Date / Time No Known Drug Allergies Allergy Verified 11/16/21 06:39 - Social History Does the pt smoke?: No Smoking Status: Never smoker Does the pt drink ETOH?: No Does the pt have substance abuse?: No - Immunizations Immunizations are current?: Yes - POLST Patient has POLST: No PD ED PE NORMAL - Vitals Vital signs reviewed: Yes - General General: Alert and oriented X 3, Well developed/nourished, Other (appears in pain upper abd. ) - HEENT HEENT: Pharynx benign - Neck Neck: Supple, no meningeal sign, No adenopathy - Cardiac Cardiac: RRR, No murmur - Respiratory Respiratory: Clear bilaterally - Abdomen Abdomen: Normal bowel sounds, Soft, Non distended, No organomegaly, Other (tender epigastric area without guarding nor percussion tenderness. ) Results - Vitals Vitals: Oxygen O2 Source Room air - Labs Labs: Laboratory Tests 11/16/21 11/16/21 08:05 08:05 WBC 7.9 RBC 4.87 Hgb 11.9 L Hct 37.7 MCV 77.4 L MCH 24.4 L MCHC 31.6 L RDW 16.5 H Plt Count 326 MPV 10.1 Neut # (Auto) 5.1 Lymph # (Auto) 2.0 [place] # (Auto) 0.4 Eos # (Auto) 0.3 Baso # (Auto) 0.1 Absolute Nucleated RBC 0.00 Nucleated RBC % 0.0 Sodium 139 Potassium 3.7 Chloride 101 Carbon Dioxide 28 Anion Gap 10.0 BUN 14 Creatinine 0.7 Estimated GFR (MDRD) 88 L Glucose 111 H Calcium 9.4 Total Bilirubin 0.7 AST 20 ALT 33 Alkaline Phosphatase 114 Total Protein 7.9 Albumin 4.0 Globulin 3.9 Albumin/Globulin Ratio 1.0 Lipase 23 PD MEDICAL DECISION MAKING - ED course Complexity details: reviewed old records (prior U/S and CT without Dx. I don't see gain of repeating these. EGD more likely to have Dx, and is upcoming in Dec. Meanwhile can test for H.Pylori. ), reviewed results, re-evaluated patient (improved with GI cocktail. ), considered differential, d/w patient Departure - Departure Disposition: 01 Home, Self Care Clinical Impression: Epigastric abdominal pain Condition: Stable Record reviewed to determine appropriate education?: Yes Instructions: ED PUD Vs Gastritis Follow-Up: Lauren Hall ARNP [Primary Care Provider] - Prescriptions: Sucralfate [Carafate] 1 gm PO ACHS #30 tablet Esomeprazole Magnesium 20 mg PO DAILY 30 Days #30 tab Famotidine [Pepcid] 20 mg PO BID #20 tablet Lidocaine Viscous 2% [Xylocaine Viscous 2%] 5 ml PO Q4H PRN #100 ml PRN Reason: Pain Comments: Bring back a stool sample to the lab either here at the hospital or the clinics in order to test for Helicobacter pylori in the stool. If present, this represents a infection in the stomach lining and may account for the prolonged and persistent stomach pains you been having. The other test for evaluating the stomach process is the endoscopy which is unfortunately postponed till the end of December. Meanwhile I would suggest returning to the esomeprazole daily for the next month or 2 and Also use famotidine acid gum sprayer regularly for the next 7 to 10 days and then follow back to as needed. Sucralfate to coat the stomach and esophagus 3-4 times daily for the next several days to a week as well. To all this she can add antacid such as Maalox or Mylanta and combine it with lidocaine to help with his symptoms. To that add Tylenol 4 times a day as needed for pain. Continue to not use any NSAIDs. Discharge Date/Time: 11/16/21 09:19
[2021-11-16] MEDS ORDERED: LIDOCAINE VISCOUS 2% 15 ML UDC MM STA (07:53)
[2021-11-16] MEDS ORDERED: diphenhydrAMINE ELIXIR 25 MG/10 ML UDC PO STA (07:53)
[2021-11-16] MEDS ORDERED: MAG HYDROX/AL HYDROX/SIMETH 30 ML UDC PO STA (07:53)
[2021-11-16] MEDS ORDERED: FAMOTIDINE 20 MG TABLET PO STA (07:53)
[2021-11-16 08:29] LABS: BASOPHILS # (AUTO) 0.1 10^3/uL (0.0-0.1); BASOPHILS % (AUTO) 0.8 %; BILIRUBIN,TOTAL 0.7 mg/dL (0.2-1.0); CALCIUM 9.4 mg/dL (8.5-10.3); CREATININE 0.7 mg/dL (0.4-1.0); EOSINOPHILS # (AUTO) 0.3 10^3/uL (0.0-0.7); EOSINOPHILS % (AUTO) 3.4 %; HCT - HEMATOCRIT 37.7 % (37.0-47.0); HGB - HEMOGLOBIN 11.9 g/dL (12.0-16.0); LYMPHOCYTES % (AUTO) 24.9 %; MEAN CORPUSCULAR HEMOGLOBIN 24.4 pg (27.0-31.0); MEAN CORPUSCULAR HGB CONC 31.6 g/dL (32.0-36.0); MEAN CORPUSCULAR VOLUME 77.4 fL (81.0-99.0); MEAN PLATELET VOLUME 10.1 fL (7.9-10.8); MONOCYTES # (AUTO) 0.4 10^3/uL (0.0-1.0); MONOCYTES % (AUTO) 5.1 %; NEUTROPHILS # (AUTO) 5.1 10^3/uL (1.5-6.6); PLT - PLATELET COUNT 326 10^3/uL (130-450); POTASSIUM 3.7 mmol/L (3.5-5.0); RED BLOOD COUNT 4.87 10^6/uL (4.20-5.40); RED CELL DISTRIBUTION WIDTH 16.5 % (12.0-15.0); TOTAL PROTEIN 7.9 g/dL (6.7-8.2); WHITE BLOOD COUNT 7.9 x10^3/uL (4.8-10.8)
[2021-11-16 09:19] VITALS: BP 192/100
== END 2021-11-16 09:19 | disposition home or self-care (01) ==
LOC: ED 06:32
DX: R10.13 Epigastric pain (principal)
CPT/HCPCS: 36415; 80053; 83690; 85025; 99284; A9270

== ENCOUNTER 2021-11-20 08:00 | Outpatient (CLI) | payer BC ==
[2021-11-20 10:28] LABS: H. PYLORIS ANTIGEN STL NEGATIVE (Negative)
== END 2021-11-20 23:59 ==
LOC: LAB.R 08:00
PROVIDERS: ATTEND Emergency Medicine
DX: R10.13 Epigastric pain (principal)
CPT/HCPCS: 87338

== ENCOUNTER 2021-12-28 06:57 | Day surgery (SDC) | payer BC ==
[2021-12-28] MEDS ORDERED: LACTATED RINGERS 1,000 ML IV ONE ×2 (07:00→09:43)
--- NOTE | 2021-12-28 08:02 | ANESTHESIA ---
Pre-Anesthesia VS, & Labs - Diagnosis gastritis, screening - Procedure EGD, Colonoscopy Vital Signs: Temp Pulse Resp BP Pulse Ox 35.7 C L 86 18 191/103 H 99 12/28/21 07:00 12/28/21 07:00 12/28/21 07:00 12/28/21 07:00 12/28/21 07:00 Height: 5 ft 3 in Weight (kg): 109.8 kg Body Mass Index: 42.8 BMI Classification: Morbidly Obese - NPO >8 hours - Is Patient ?: No - Lab Results Lab results reviewed: Yes Home Medications and Allergies Allergies/Adverse Reactions: Allergies Allergy/AdvReac Type Severity Reaction Status Date / Time No Known Drug Allergies Allergy Verified 11/16/21 06:39 Anes History & Medical History - Anesthetic History Anesthesia Complications: reports: No previous complications Family history of Anesthesia Complications: Denies Family history of Malignant Hyperthermia: Denies - Medical History Cardiovascular: reports: None Pulmonary: reports: None Gastrointestinal: reports: GERD, Ulcers Urinary: reports: Other Neuro: reports: None Musculoskeletal: reports: None Endocrine/Autoimmune: reports: None Blood Disorders: reports: None Smoking Status: Never smoker - Surgical History Gynecologic: reports: section Exam General: Alert, Oriented x3, Cooperative, No acute distress Dental: WNL Mouth Openin Fingerbreadth Neck Mobility: Normal Mallampati classification: II Plan Anesthesia Type: General, Total IV Consent for Procedure(s) Verified and Reviewed: Yes Code Status: Attempt Resuscitation ASA classification: 3-Severe systemic disease Is this case an emergency?: No
[2021-12-28] MEDS ORDERED: LIDOCAINE-PF 2% 10 ML AMP SUBQ ONE (08:12)
[2021-12-28] MEDS ORDERED: PROPOFOL 500 MG/50 ML 500 MG/50 ML VIAL ONE ×2 (08:12→08:51)
--- NOTE | 2021-12-28 08:16 | HISTORY & PHYSICAL EXAMINATION ---
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 : reports: Other Psych: reports: None Musculoskeletal: reports: None MRSA Hx?: No - Past Surgical History /SHANK SORTER: reports: section - POLST Patient has POLST: No Meds/Allgy - Home Medications Home Medications: Ambulatory Orders Medication Instructions Recorded Confirmed Esomeprazole Magnesium [Nexium] 40 mg PO DAILY #30 cap 07/17/21 12/27/21 Famotidine [Pepcid] 20 mg PO BID #60 tablet 07/17/21 12/27/21 Sucralfate [Carafate] 1 gm PO ACHS #60 tablet 07/17/21 12/27/21 - Allergies Allergies/Adverse Reactions: Allergies Allergy/AdvReac Type Severity Reaction Status Date / Time No Known Drug Allergies Allergy Verified 11/16/21 06:39 Review of Systems - Other Findings Other Findings: 10 pt ros as above otherwise unremarkable Exam - Vital Signs Reviewed Vital Signs: Yes Vital Signs: Vital Signs x48h Temp Pulse Resp BP Pulse Ox 12/28/21 07:00 35.7 C L 86 18 191/103 H 99 - Physical Exam General Appearance: positive: Alert Eyes Bilateral: positive: PERRL, EOMI ENT: positive: No signs of dehydration Neck: positive: No JVD Respiratory: positive: No respiratory distress, Breath sounds nml Cardiovascular: positive: Regular rate & rhythm Abdomen: positive: Non-tender, No distention Neurologic/Psychiatric: positive: Oriented x3 Conclusion/Plan - Problem List (1) Epigastric abdominal pain Conclusion/Plan: continued epigastric pain plan egd with biopies due for colon cancer screening parq held and consent obtained - Lab Results Lab results reviewed: Yes
[2021-12-28] MEDS ORDERED: GLYCOPYRROLATE 1 MG/5 ML VIAL ONE (08:56)
[2021-12-28] MEDS ORDERED: PROPOFOL 200 MG/20 ML VIAL IVP ONE (09:25)
[2021-12-28 10:16] VITALS: BP 145/96
== END 2021-12-28 06:58 | disposition home or self-care (01) ==
LOC: SDS 06:57
PROVIDERS: ATTEND Surgery
PROC: 0DB68ZX Excision of Stomach, Via Natural or Artificial Opening Endoscopic, Diagnostic (ICD-10-PCS; 2021-12-28)
PROC: 0DB38ZX Excision of Lower Esophagus, Via Natural or Artificial Opening Endoscopic, Diagnostic (ICD-10-PCS; principal; 2021-12-28 08:15)
PROC: 0DB78ZX Excision of Stomach, Pylorus, Via Natural or Artificial Opening Endoscopic, Diagnostic (ICD-10-PCS; 2021-12-28 08:15)
DX: Z12.11 Encounter for screening for malignant neoplasm of colon (principal); K29.50 Unspecified chronic gastritis without bleeding; K22.10 Ulcer of esophagus without bleeding; K31.7 Polyp of stomach and duodenum; K21.9 Gastro-esophageal reflux disease without esophagitis; K57.30 Diverticulosis of large intestine without perforation or abscess without bleeding; E66.01 Morbid (severe) obesity due to excess calories; Z68.41 Body mass index [BMI] 40.0-44.9, adult; Z79.899 Other long term (current) drug therapy
CPT/HCPCS: 43239; 45378; J7120

== ENCOUNTER 2022-10-08 08:00 | Outpatient (CLI) | payer BC | END 2022-10-08 23:59 | disposition home or self-care (01) | LOC: LAB.N 08:00 | PROVIDERS: ATTEND Nurse Practitioner | DX: R30.0 Dysuria (principal) | CPT/HCPCS: 87086 ==

== ENCOUNTER 2022-11-06 15:29 | Outpatient (CLI) | payer BC ==
--- NOTE | 2022-11-08 10:49 | Mammography Report ---
BILATERAL DIGITAL SCREENING MAMMOGRAM 3D/2D: 11/06/2022 CLINICAL: Routine screening. Comparison is made to exams dated: 04/18/2017 mammogram - [facility] and 10/28/2019 mammogram - [facility]. Both breasts are heterogeneously dense, which may obscure small masses (category c / 51-75% glandular tissue). No significant masses, calcifications, or other findings are seen in either breast. There has been no significant interval change. IMPRESSION: NEGATIVE There is no mammographic evidence of malignancy. A 1 year screening mammogram is recommended. Based on Tyrer-Cuzick model (a risk assessment model), the patient's lifetime risk is 27.4% and her 1 0 year risk is 7.9%. If a patient has an elevated risk, a more comprehensive evaluation should be con sidered and/or a referral to a genetic counselor. The [place] [employer], [place] [employer], and NCCN Guidelines advise the consideration of Breast MRI as an adjunct to screening mammog dhaval in patients whose "Lifetime risk to develop breast cancer" is 20% or higher. This exam was interpreted at Station ID: [id number]. NOTE: For mammograms, a report in lay terms will be sent to the patient. Approximately 15% of breast malignancies will not be visualized mammographically. In the management of a palpable breast mass, a negative mammogram must not discourage biopsy of a clinically suspicious lesion. Electronically Signed By: Becky delgado/vi:11/07/2022 13:00:18 ACR BI-RADS Category 1: Negative 3341F PARENCHYMAL PATTERN: (D) - The breast(s) demonstrate(s) heterogeneously dense fibroglandular anthony espinoza. BI-RADS CATEGORY: (1) - 1 RECOMMENDATION: (ANNUAL) - Recommend routine annual screening mammography. [id number] 1 year screening LATERALITY: (B)
== END 2022-11-06 15:30 | disposition home or self-care (01) ==
LOC: DI 15:29
PROVIDERS: ATTEND Registered Nurse
DX: Z12.31 Encounter for screening mammogram for malignant neoplasm of breast (principal)

== ENCOUNTER 2023-04-04 15:38 | Outpatient (CLI) | payer BC ==
--- NOTE | 2023-04-04 16:30 | Sleep Patient Instructions ---
Sleep Center Visit Summary - Patient Visit Information Reason for Visit: Initial consult for evaluation of sleep disordered breathing and other sleep issues. - Patient Instructions Instructions Attached: Sleep Study, Sleep Clinic Visit, Sleep Study Home Monitor Additional Instructions: You will be completing a sleep study, either an in-lab polysomnography (PSG) or home sleep study (HST). You will follow-up in the sleep care office after the sleep study is completed to hear the results and talk about therapy, if needed. You will be called by our office staff to schedule this appointment, but you may contact us with any questions. - Clinic Information Contact: [facility] [address] [place] [address] [email or web address] T: [phone]
--- NOTE | 2023-04-04 16:35 | SLEEP CARE CONSULTATION ---
Information from patient questionnaire entered by Minnie Patterson. I have reviewed and concur with the information entered by Minnie Patterson. This document represents the service I personally performed and the decisions made by me, Mendy Jesus ARNP. History of Present Illness Service Date and Time: 04/04/2023 1538 Reason for Visit: New patient Chief Complaint: reports: Snoring, Observed pauses in breathing, Fatigue, Frequent awakenings at night Date of Onset: 10-15YRS Usual bedtime: 930-10PM Time it takes to fall asleep: 15-20MIN Snores at night: Yes Observed to quit breathing while asleep: Yes Sleeps alone due to snoring: Yes Number of times waking at night: 6+ Reasons for waking at night: reports: Snoring, Bathroom, Other (UNKNOWN). denies: Choking, Gasping for air Toss, Turn, or Twitch while sleeping: Yes Recalls having dreams: No Usually gets out of bed at: 0530 Feels refreshed in the morning: No (1-2 times a week does feel rested) Morning headache: Yes (1-2 times a week, last most of day) Sleepy or fatigued during the day: Yes Ever fallen asleep while driving: No Takes day naps: Yes (occasional unintentional nap) Dreams during day naps: Yes Prior sleep studies: Yes Year and Where: 2016 Additional HPI information: I had the pleasure of seeing PIERO GONZALEZ today regarding the possibility of her having a sleep disorder. Her current complaints are fatigue, frequent night awakenings, observed pauses in breathing and snoring. She states that she is having an increase of her snoring. The snoring is waking her up a couple times a night. She states her mother told her that she snored as a baby. She has gained weight, 15-20 pounds in last five years. Her can't sleep in same room because of the loud snoring. She states she feels fatigued and "dragging" during the day. She only wakes up feeling rested 1-2 days a week. 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 She had a sleep study done in 2017 in [place] but she was on a pricing lead and was unable to sleep well for the study. - Parasomnia Symptoms Ever been unable to move upon waking from sleep: No Walks in sleep: No Talks in sleep: Yes Ever acted out dreams in sleep: No Ever felt weak in the knees when startled or emotional: No Bothered by creepy, crawly, restless sensations in legs: No Problems with memory or concentration: Yes (both, sometimes) Subjective Initial [place] Sleepiness Scale score: 4 (04/04/23) Past Medical History Past Medical History: reports: GERD Social History The patient's occupation is a [employer]. Patient is and lives in [place]. Have you smoked in the past 12 months: No Alcohol use: Yes Alcohol amount and frequency: 1 PER WEEK Caffeine use: Yes Caffeine amount and frequency: 8OZ TEA DAILY CAFFEINATED WATER PACK 1 DAILY Family History Family history of sleep disordered breathing: Yes Family Hx Sleep Apnea: Mother: Snoring, Father: Snoring, Sleep apnea - Untreated, Sibling: Snoring, Sleep apnea - Treated Allergies and Home Medications Known drug allergies: No Drug allergies reviewed: Yes Home medication list reviewed: Yes Allergy and home medication list: Allergies No Known Drug Allergies Allergy (Verified 04/03/23 15:22) Medications: Esomeprazole 40 mg, daily Famotidine 20 mg, daily Review of Systems Weight gain over past 5 years: 15-20 Cardiovascular: denies: high blood pressure Respiratory: reports: other (GET WINDED EASILY). denies: shortness of breath Gastrointestinal: reports: heartburn Urinary: reports: frequency, urgency Neurological: denies: headaches Psychiatric: denies: anxiety, depression Ear/Nose/Throat: reports: nasal congestion, sinus problems, dry mouth/throat. denies: tonsillectomy Endocrine: reports: sluggishness. denies: thyroid disease Immunologic: denies: allergies to food or environment Physical Exam Vital signs obtained and entered by: MINNIE Garibay MA Blood Pressure: 132/88 (LEFT ARM) Cuff size: long Heart Rate: 80 O2 Saturation: 98 Height: 5 ft 3 in Weight: 250 lb 6.4 oz Body Mass Index: 44.3 BMI Classification: Morbidly Obese Neck circumference: 15.5 Mouth and throat: narrow oropharynx Soft palate: long Hard palate: normal Uvula: normal Uvula visualization: 0% Mallampati Class IV Tongue: enlarged in size with teeth hernandez on lateral edges Tonsils: 2+ Neck: normal w/o lymphadenopathy or thyromegaly Heart: regular rate and rhythm Lungs: clear bilaterally Impression and Plan 1. Suspected Obstructive Sleep Apnea-Hypopnea Syndrome, as suggested by a history of loud and irregular snoring, observed cessation of breath while asle ep, morning headache, frequent awakening during the night, unrefreshed sleep and cognitive impairment. Narrow oropharynx and obesity are common predisposing factors for obstructive sleep apnea-hypopnea syndrome. I recommend proceeding to polysomnography to confirm the diagnosis and to assess severity. If the patient has significant sleep disordered breathing, a manual CPAP titration study will also be performed to find the optimal treatment pressure. I informed the patient of what the sleep studies involve and after some discussion, obtained agreement to proceed. The pathophysiology of obstructive sleep apnea-hypopnea syndrome was discussed with the patient and health risks of cardiovascular and cerebrovascular disease if not treated. Risks of drowsy driving discussed in detail and patient advised to avoid long distance driving and to ticket puller at the first sign of drowsiness. Patient agreed to plan. * Schedule polysomnography +- manual CPAP titration study and return in 1-2 weeks after the study to discuss result and initiate therapy. * Avoid long distance driving or driving when feeling sleepy. * Avoid alcohol, sedative and muscle relaxant around bedtime. * Attempt to lose weight. * Review instructions provided by trained office staff on how to prepare for the sleep study. * Return for follow-up after sleep study completed. Counseling Topics: Weight loss health impact Visit Type: In Office Time Spent with Patient (minutes): 31 Provider Statement: I spent 100% of the Face to Face Visit with the patient with greater than 50% spent counseling the patient and coordination of care.
[2023-04-04 16:44] VITALS: BP 132/88
== END 2023-04-04 15:39 | disposition home or self-care (01) ==
LOC: SC 15:38
PROVIDERS: ATTEND Nurse Practitioner Family
DX: R53.83 Other fatigue (principal); G47.8 Other sleep disorders; R06.83 Snoring; R06.81 Apnea, not elsewhere classified; E66.01 Morbid (severe) obesity due to excess calories; Z68.41 Body mass index [BMI] 40.0-44.9, adult
CPT/HCPCS: 99203; 99212

== ENCOUNTER 2023-05-23 14:12 | Outpatient (CLI) | payer BC | END 2023-05-23 14:13 | disposition home or self-care (01) | LOC: SC 14:12 | PROVIDERS: ATTEND Nurse Practitioner Family | DX: G47.33 Obstructive sleep apnea (adult) (pediatric) (principal); R09.02 Hypoxemia; E66.01 Morbid (severe) obesity due to excess calories; Z68.41 Body mass index [BMI] 40.0-44.9, adult | CPT/HCPCS: 95806 ==

== ENCOUNTER 2023-06-19 14:55 | Outpatient (CLI) | payer BC ==
--- NOTE | 2023-06-19 15:46 | Sleep Patient Instructions ---
Sleep Center Visit Summary - Patient Visit Information Reason for Visit: Sleep study follow-up - Patient Instructions Instructions Attached: CPAP Dc, CPAP Additional Instructions: You are being started on CPAP therapy with pressure setting at 4-15 cmH2O. You will need to call the sleep care office to set up your follow up once you have your APAP machine and we will schedule a visit to check compliance and response to therapy at that time. You may call the office with any concerns about pressure feeling too low or too much for adjustment, if needed. You should contact DME for any questions or concerns about mask or equipment. Please call office to schedule a follow up appointment in the sleep care office a month after obtaining new device. - Clinic Information Contact: [facility] [address] [place] [address] [email or web address] T: [phone]
--- NOTE | 2023-06-19 15:49 | SLEEP CARE CONSULTATION ---
Information from patient questionnaire entered by Etta Patterson. I have reviewed and concur with the information entered by Etta Patterson. This document represents the service I personally performed and the decisions made by me, Mendy Jesus ARNP. History of Present Illness Service Date and Time: 06/19/2023 1457 Initial Burns Sleepiness Scale score: 4 (04/04/23) Current Burns Sleepiness Scale score: 6 (06/19/23) Additional HPI information: PIERO GONZALEZ returns for follow up and results of the recently performed home sleep study. I explained the pathophysiology behind obstructive sleep apnea. We then spent quite a bit of time discussing different treatment options. For mild obstructive sleep apnea, surgery and oral appliance are alternatives to nasal CPAP therapy but in moderate or severe cases, nasal CPAP is the most effective and reliable treatment. Because apnea is primarily in supine position, then positional management therapy could be effective. Methods discussed such as positioning with pillows, using a T-shirt with tennis balls in the back or commercial products that have a pillow format on back to prevent supine sleep. I reviewed the impact of weight changes on sleep apnea and strongly recommended losing weight. After some discussion, the patient opted to go with the nasal CPAP therapy. Nasal autoCPAP set at 4-15 cmH20 will be ordered with rationale explained. A manual titration study will be ordered if unable to find optimal pressure with office adjustments. I explained how CPAP machine works and what to expect when using the machine. Using CPAP every night in order to get used to it was emphasized. Patient advised to put CPAP mask on before getting into bed so as not to fall asleep without CPAP. To assist acclimation to CPAP use, it could also be used for a short time during day while reading or watching TV. The patient was instructed to call the CPAP supplier to discuss any mechanical problem that may occur. If the mask given is uncomfortable or is difficult to keep on through the night even with adjustment, contact the CPAP supplier as many will replace with another mask style if notified before 30 days. If snoring or perceives is not getting enough air or too much air from the machine, notify this office. Patient does not drink alcohol. Patient was cautioned about risks of drowsy driving until sleepiness symptoms resolve. Patient denies drowsy driving. Sleep Study - Results Type of Sleep Study: Home sleep study (LAST SEEN 05/23/23) Prior sleep studies: Yes Year and Where: 2016 [facility] Polysomnography/Home Sleep Study results: Physician Impression: The quality of the study is good. The length of the study is adequate (> 240 minutes). Please also see the tabulated and graphic data. 1. Obstructive Sleep Apnea-Hypopnea (ICD-10 G47.33), mild, with an AHI of 9.8/hr and chito SaO2 of 80%. During the study, the patient had 23 apneas (23 obstructive, 0 central, 0 mixed) and 71 hypopneas. The longest episode lasted 74.0 seconds. The respiratory events occurred almost exclusively during supine sleep (supine AHI was 12.2 and non-supine, 4.43). 2. Hypoxemia (ICD-10 R09.02), mild, with the lowest oxygen saturation of 80 % and 13.7 minutes with SaO2 under 90%. Baseline oxygen saturation was normal (Average oxygen saturation was 94%). Allergies and Home Medications Known drug allergies: No Drug allergies reviewed: Yes Home medication list reviewed: Yes (no changes) Allergy and home medication list: Allergies No Known Drug Allergies Allergy (Verified 06/18/23 09:40) Review of Systems Review of systems same as previous: Yes (no changes) Physical Exam Vital signs obtained and entered by: ETTA Garibay MA Blood Pressure: 134/84 (LEFT ARM) Cuff size: long Heart Rate: 86 O2 Saturation: 98 Height: 5 ft 3 in Weight: 254 lb 12.8 oz Body Mass Index: 45.1 BMI Classification: Morbidly Obese Impression and Plan 1. Obstructive Sleep Apnea-Hypopnea Syndrome, mild, with lowest oxygen saturation of 80%. Obviously this is the cause of the patients symptoms of unrefreshed sleep, and excessive daytime sleepiness. Positive pressure therapy could benefit gastric reflux. As mentioned above, the patient will be started on nasal autoCPAP therapy with pressure set at 4-15 cmH2O. A manual titration study will be completed if unable to find optimal treatment pressure with office adjustments. Compliance guidelines also reviewed. A copy of compliance guidelines will be given for reference at check out. Because the apnea is more severe supine, I instructed to avoid sleeping supine using pillow positioning until able to start CPAP use. 2. Hypoxemia, mild, with a chito oxygen saturation of 80% and 13.7 minutes spent under 90%. Her baseline oxygen saturation was normal with an average oxygen saturation of 94%. 3. Obesity, unspecified. Currently patients BMI is 45.1. Obesity increases the risk of apnea, CPAP pressure requirements and overall health risks especially cardiovascular and diabetes. Thus patient is advised to lose weight. * Nasal auto CPAP therapy, pressure at 4-15 cm H2O. * Attempt to lose weight. * Avoid alcohol consumption near bedtime. * Avoid supine sleep until using CPAP. * The patient is again cautioned about driving until sleepiness completely resolves. * Return one month after CPAP obtained. I will assess response to therapy and compliance at that time. Counseling Topics: Weight loss health impact Visit Type: In Office Time Spent with Patient (minutes): 26 Provider Statement: I spent 100% of the Face to Face Visit with the patient with greater than 50% spent counseling the patient and coordination of care.
[2023-06-19 15:50] VITALS: BP 134/84; O2SAT 98
== END 2023-06-19 14:56 | disposition home or self-care (01) ==
LOC: SC 14:55
PROVIDERS: ATTEND Nurse Practitioner Family
DX: G47.33 Obstructive sleep apnea (adult) (pediatric) (principal); R09.02 Hypoxemia; E66.01 Morbid (severe) obesity due to excess calories; Z68.42 Body mass index [BMI] 45.0-49.9, adult
CPT/HCPCS: 99212; 99213

== ENCOUNTER 2023-08-11 07:51 | Outpatient (CLI) | payer BC ==
[2023-08-11 08:22] LABS: BASOPHILS # (AUTO) 0.1 10^3/uL (0.0-0.1); BASOPHILS % (AUTO) 0.6 %; EOSINOPHILS # (AUTO) 0.3 10^3/uL (0.0-0.7); EOSINOPHILS % (AUTO) 2.9 %; HCT - HEMATOCRIT 39.7 % (37.0-47.0); HGB - HEMOGLOBIN 12.3 g/dL (12.0-16.0); LYMPHOCYTES # (AUTO) 2.4 10^3/uL (1.5-3.5); LYMPHOCYTES % (AUTO) 24.8 %; MEAN CORPUSCULAR HEMOGLOBIN 23.8 pg (27.0-31.0); MEAN CORPUSCULAR VOLUME 76.9 fL (81.0-99.0); MEAN PLATELET VOLUME 9.7 fL (7.9-10.8); MONOCYTES # (AUTO) 0.4 10^3/uL (0.0-1.0); MONOCYTES % (AUTO) 3.7 %; NEUTROPHILS # (AUTO) 6.5 10^3/uL (1.5-6.6); NEUTROPHILS % (AUTO) 67.7 %; PLT - PLATELET COUNT 335 10^3/uL (130-450); RED BLOOD COUNT 5.16 10^6/uL (4.20-5.40); RED CELL DISTRIBUTION WIDTH 16.5 % (12.0-15.0); WHITE BLOOD COUNT 9.6 x10^3/uL (4.8-10.8)
[2023-08-11 08:36] LABS: ALBUMIN 4.4 g/dL (3.2-5.5); ALBUMIN/GLOBULIN RATIO 1.3 (1.0-2.2); ALKALINE PHOSPHATASE 127 IU/L (42-121); ALT ALANINE AMINOTRANSFERASE 21 IU/L (10-60); AST ASPARTATE AMINOTRANSFERASE 14 IU/L (10-42); BILIRUBIN,TOTAL 0.8 mg/dL (0.2-1.0); BUN - BLOOD UREA NITROGEN 16 mg/dL (6-20); CALCIUM 9.6 mg/dL (8.5-10.3); CARBON DIOXIDE - CO2 29 mmol/L (21-32); CHLORIDE 102 mmol/L (101-111); CHOL/HDL RATIO 2.9 (<4.4); CHOLESTEROL 168 mg/dL; CREATININE 0.8 mg/dL (0.6-1.3); GFR - MDRD 75 (>89); GLUCOSE 104 mg/dL (74-104); HDL CHOLESTEROL 57 mg/dL; LDL CHOLESTEROL,CALCULATED 97 mg/dL; LDL/HDL RATIO 1.7 (<4.4); POTASSIUM 4.3 mmol/L (3.5-4.5); SODIUM 138 mmol/L (135-145); TOTAL PROTEIN 7.7 g/dL (6.4-8.9); TRIGLYCERIDES 68 mg/dL (48-352); VLDL CHOLESTEROL 14 mg/dL
[2023-08-11 08:52] LABS: THYROID STIMULATING HORMONE 2.94 uIU/mL (0.34-5.60)
== END 2023-08-11 07:52 | disposition home or self-care (01) ==
LOC: LAB 07:51
PROVIDERS: ATTEND Registered Nurse
DX: Z13.228 Encounter for screening for other metabolic disorders (principal); Z13.220 Encounter for screening for lipoid disorders; Z13.29 Encounter for screening for other suspected endocrine disorder; Z13.0 Encounter for screening for diseases of the blood and blood-forming organs and certain disorders involving the immune mechanism
CPT/HCPCS: 36415; 80053; 80061; 83721; 84443; 85025

== ENCOUNTER 2023-08-28 15:56 | Outpatient (CLI) | payer BC ==
--- NOTE | 2023-08-28 17:01 | Sleep Patient Instructions ---
Sleep Center Visit Summary - Patient Visit Information Reason for Visit: First compliance with PAP therapy - Patient Instructions Additional Instructions: You were here for follow up of CPAP therapy. You will be continued on CPAP therapy with pressure at 8-11 cmH2O. Please let us know if the pressure change is uncomfortable and we can make further adjustments of the pressure. You should follow up with sleep care in 1-2 months. You may contact us sooner for any questions or concerns. - Clinic Information Contact: [facility] [address] [place] [address] [email or web address] T: [phone]
--- NOTE | 2023-08-28 17:04 | SLEEP CARE CONSULTATION ---
Information from patient questionnaire entered by Etta Patterson. I have reviewed and concur with the information entered by Etta Patterson. This document represents the service I personally performed and the decisions made by me, Mendy Jesus ARNP. History of Present Illness Service Date and Time: 08/28/2023 1556 Previous diagnosis: Mild, Obstructive Sleep Apnea-Hypopnea Syndrome AHI: 9.8 (05/2023) Reason for follow up: first compliance Equipment type: CPAP (RESMED 11, s/u 06/2023) Equipment obtained from: Other ([facility]; getting supplies) Mask style: Nasal (over the nose, small cushion) Backup mask available: No Last cushion change: 1 month Prior sleep studies: Yes Year and Where: 2016 [place] Type of Sleep Study: Home sleep study (LAST SEEN 05/23/23) HPI additional information: PIERO GONZALEZ was diagnosed to have mild, AHI 9.8, obstructive sleep apnea-hypopnea syndrome and returned today for CPAP therapy first compliance follow-up. Sleep Study - Results Type of Sleep Study: Home sleep study (LAST SEEN 05/23/23) Prior sleep studies: Yes Year and Where: 2016 [facility] CPAP Compliance Data - Data Reviewed with Patient Average duration of nightly device use: 4 HRS 59 MINS Compliance rate %: 72 (07/03/23-08/25/23; 52/54 days used) Current pressure setting (cmH2O): 4-15 (median 7.5, avg 9.9, max 10.9) Average residual AHI: 1.9 Central apnea: 0.2 Obstructive apnea: 1.5 Hypopnea: 0.1 Average large leak: 0.1 L/min Subjective Missed days of use due to: reports: illness (had a cold) Patient concerns: reports: condensation in mask/hose (occasionally), dry mouth, nose, throat (just at first). denies: aerophagia, mask discomfort, air blowing in eyes, mask leak noise, nasal congestion, epistaxis Observed to snore while using device: No Current pressure setting perceived as: comfortable On therapy, patient: reports: sleeping better, awakening more refreshed, being more awake and alert during the day, more rested overall. denies: drowsiness while driving Initial [place] Sleepiness Scale score: 4 (04/04/23) Current Garrett Sleepiness Scale score: 5 (08/28/23) Allergies and Home Medications Known drug allergies: No Drug allergies reviewed: Yes Home medication list reviewed: Yes (Metformin) Allergy and home medication list: Allergies No Known Drug Allergies Allergy (Verified 08/27/23 11:27) Review of Systems Review of systems same as previous: No (Diabetes) Physical Exam Vital signs obtained and entered by: ETTA Garibay MA Blood Pressure: 174/95 (LEFT ) Cuff size: wrist Heart Rate: 92 O2 Saturation: 99 Height: 5 ft 3 in Weight: 253 lb 9.6 oz Body Mass Index: 44.9 BMI Classification: Morbidly Obese Impression and Plan 1. Obstructive Sleep Apnea-Hypopnea Syndrome, mild, with good treatment compliance and good apnea control. On CPAP therapy, the patient has better sleep quality and is more rested overall. Patient has significant improvement of their sleep apnea and is satisfied with current CPAP therapy. She has had some problems with the mask harness getting tangled up in her hair and would like to try a more simplified version of a nasal cushion mask. I will add a mask refitting to her prescription with adjusting her pressure. The patients pressu re will be changed to autoCPAP 8-11 cmH20 to reflect pressures being used. Patient advised to contact me if pressure change is uncomfortable so that it can be adjusted. Goals for apnea control discussed. Patient's apnea severity and rationale for treatment to reduce apnea, improve sleep quality and reduce cardiovascular and cerebrovascular events was reviewed. I also reviewed the benefit of consistent device use of CPAP for gastric reflux. She has a new diagnosis for diabetes. 2. Obesity, unspecified. Currently patients BMI is 44.9. Obesity increases the risk of apnea, CPAP pressure requirements and overall health risks especially cardiovascular and diabetes. Thus patient is advised to lose weight. * Change auto CPAP pressure to 8-11 cmH2O * Notify me if snoring with mask or feeling that the pressure is too much or too little * Attempt to lose weight * Call this office if any problems using CPAP * Return for follow up in 1-2 months, or sooner if concerns arise Counseling Topics: Spare mask, Weight loss health impact Follow up with Sleep Care in: 1-2 months Visit Type: In Office Time Spent with Patient (minutes): 20 Provider Statement: I spent 100% of the Face to Face Visit with the patient with greater than 50% spent counseling the patient and coordination of care.
[2023-08-28 17:05] VITALS: BP 174/95; O2SAT 99
== END 2023-08-28 15:57 | disposition home or self-care (01) ==
LOC: SC 15:56
PROVIDERS: ATTEND Nurse Practitioner Family
DX: G47.33 Obstructive sleep apnea (adult) (pediatric) (principal); E66.01 Morbid (severe) obesity due to excess calories; Z68.41 Body mass index [BMI] 40.0-44.9, adult
CPT/HCPCS: 99212; 99213